=== PATIENT | female | born 1950 | race Caucasian/White ===

== ENCOUNTER 2021-08-15 19:27 | Emergency (ER) | payer MEDICARE, SELFPAY ==
[2021-08-15 19:28] VITALS: BP 177/129; PULSE 92; RESP 18; TEMP 36.7; O2SAT 98; BMI 26.6
--- NOTE | 2021-08-15 19:32 | EKG12_ITS ---
Test Reason : CP Blood Pressure : / mmHG Vent. Rate : 086 BPM Atrial Rate : 086 BPM P-R Int : 150 ms QRS Dur : 084 ms QT Int : 394 ms P-R-T Axes : 023 -23 019 degrees QTc Int : 471 ms Normal sinus rhythm Normal ECG Confirmed by ADA SILVER, RIGO ([id number]), video tape editor GIL ELY ([id number]) on 08/18/2021 9:22:10 AM Referred By: ZAC Confirmed By:RIGO CABALLERO MD
--- NOTE | 2021-08-15 19:47 | RAD_ITS ---
STUDY: XR Chest 1 View 08/15/2021 7:57 PM REASON FOR EXAM: Female, 71 years old. CHEST PAIN CHEST PAIN COMPARISON: None TECHNIQUE: XR Chest 1 View FINDINGS: There is no demonstrated pleural abnormality. Normal heart size. Normal mediastinum. Normal dani. Prominent appearing increased interstitial lung markings. Normal visualized pulmonary arteries. There is atherosclerotic calcification of the aortic arch with tortuosity. There are diffuse degenerative changes of the visualized thoracic spine. There is degenerative osteoarthritis of the bilateral shoulders. There is no demonstrated abnormality of the visualized soft tissue structures of the upper abdomen. RAD/Chest 1 View (Portable) IMPRESSION: There are no acute findings. Electronically Signed: Darrell Mondragon MD at 20:18 EST , Service support ,
[2021-08-15 19:48] LABS: Absolute Lymphocyte Count 1.97 X10^3/uL (0.83-4.51); Absolute Neutrophil Count 2.7 X10^3/uL (2.0-7.7); Basophil# 0.07 X10^3/uL; Basophil% 1.3 % (0-1); Eosinophils% 3.6 % (0-5); Hematocrit 43.7 % (37-47); Hemoglobin 14.3 g/dL (12.0-15.0); Lymphocyte # 1.97 X10^3/ul (0.83-4.51); Lymphocyte % 35.6 % (19-41); Mean Corp Hgb Conc 32.7 g/dL (32-36); Mean Corpuscular Hgb 29.4 pg (27.0-32.0); Mean Corpuscular Volume 89.7 fL (81-99); Mean Platelet Vol. 9.5 fl (6.2-12.0); Monocyte% 10.8 % (0-10); NRBC Flagged by Analyzer 0 % (0-5); Neutrophil # 2.67 X10^3/uL (2.7-7.7); Neutrophil % 48.3 % (47-70); Platelet Count 264 K/mm3 (150-450); RBC Distribution Width CV 13.8 % (11.6-14.6); RBC Distribution Width SD 44.9 fl (35.1-43.9); Red Blood Count 4.87 M/mm3 (4.2-5.4); White Blood Count 5.5 K/mm3 (4.4-11.0)
[2021-08-15 20:09] LABS: Anion Gap 6 (5-15); BUN 11 mg/dL (7-18); BUN/Creat Ratio 13.4 RATIO (10-20); Calcium,Total 9.9 mg/dL (8.5-10.1); Chloride 109 mmol/L (98-107); Creatinine, Serum 0.82 mg/dL (0.55-1.02); EST Glomerular Filtration Rate 72 mL/min (>60); Est Glom Filt Rate - Afr Amer 88 mL/min (>60); Estimated Creatinine Clearance 54.98 ml/min; Glucose 105 mg/dL (74-106); Potassium 3.9 mmol/L (3.5-5.1); Sodium Level 140 mmol/L (136-145); Troponin-I HS 6 pg/mL (3.0-54.0)
[2021-08-15 21:04] VITALS: PULSE 85; RESP 21
--- NOTE | 2021-08-15 21:13 | ED.VIS.CHEST ---
HPI History of Present Illness Chief Complaint: Chest Pain Informant: patient Onset/Context/Timing Onset: Days Activity at onset: gradual Timing: Intermittent Quality: Positive for Burning and Tightness Location: Substernal Current Severity: Mild Maximum Severity: Moderate Narrative Narrative: Patient presents secondary to nightly chest pain with nausea and dizziness. Patient states for the last 2 nights she has developed chest pressure and tightness that she thought was related to reflux. She tried drinking water with baking soda and making herself vomit. This would relieve the symptoms for only short time and then they would recur. She called her doctor's office today to ask if she could restart her Nexium which she been on previously. They advised her that she could restart this, but did encourage her to be checked out if symptoms recur. Pain started again this evening so she came in for evaluation. [facility] Medical History Acid reflux Hyperlipidemia Home Medications omeprazole 20 mg PO DAILY 28 Days #28 cap 08/15/21 [Rx Last Taken Unknown] Allergy/AdvReac Type Severity Reaction Status Date / Time bee venom protein (honey bee) Allergy Swelling Verified 08/15/21 19:31 Surgical History History of cholecystectomy History of tonsillectomy Social History Smoking Status: Never smoker ROS ROS ED Constitutional Constitutional ED: Denies chills or fever(s) Eyes Eyes: Denies change in vision ENT ENT ED: Denies sore throat Cardiovascular Cardiovascular: Reports chest pain Respiratory/Chest Respiratory/Chest: Denies cough or dyspnea Gastrointestinal Gastrointestinal: Reports nausea and vomiting; Denies abdominal pain or diarrhea Genitourinary Genitourinary ED: Denies dysuria Musculoskeletal Musculoskeletal: Denies back pain or neck pain Integumentary Denies rash Neurologic Neurologic: Denies headache(s) or weakness Allergic/Immunologic Allergic/Immunologic ED: Denies urticaria EXAM Physical Exam Const Vital Signs: 08/15/21 19:28 08/15/21 21:04 08/15/21 21:09 Temperature 98.0 F Temperature Source Temporal Pulse Rate 92 85 Respiratory Rate 18 21 H Respiratory Pattern Normal Blood Pressure 177/129 H Blood Pressure Mean 145 Pulse Ox 98 Oxygen Delivery Method Room Air Room Air 08/15/21 22:00 Temperature Temperature Source Pulse Rate 76 Respiratory Rate 14 Respiratory Pattern Blood Pressure 133/96 H Blood Pressure Mean 108 Pulse Ox Oxygen Delivery Method Room Air Positive well nourished and well developed General Appearance ED: well developed HEENT Reports moist mucous membranes Eyes PERRL and EOMs intact bilaterally Neck supple Chest Wall inspection of chest normal and palpation of chest normal Resp normal respiratory effort Effort and Inspection: respiratory distress Cardio regular rate and regular rhythm Extremity normal to inspection Neuro Sensorium / Orientation: awake and alert Psych mental status grossly normal Skin no rashes or lesions noted Heart Score History: Slightly/Non-Suspicious ECG: Normal Age: >/= 65 years Risk Factors: No Risk Factors Troponin: </= Normal Limit Score: 2 MDM MDM MDM Narrative Medical decision making narrative: EKG, chest x-ray, lab work obtained. Patient given a GI cocktail. Lab Data Attestation: I reviewed the patient's lab results. Labs: Laboratory Results - last 24 hr 08/15/21 08/15/21 08/15/21 19:42 19:42 21:36 WBC 5.5 RBC 4.87 Hgb 14.3 Hct 43.7 MCV 89.7 MCH 29.4 MCHC 32.7 RDW Std Deviation 44.9 H RDW Coeff of [place]alia 13.8 Plt Count 264 MPV 9.5 Immature Gran % (Auto) 0.400 Neut % (Auto) 48.3 Lymph % (Auto) 35.6 [place] % (Auto) 10.8 H Eos % (Auto) 3.6 Baso % (Auto) 1.3 H Absolute Neuts (auto) 2.7 Absolute Lymphs (auto) 1.97 Nucleated RBC % 0 Sodium 140 Potassium 3.9 Chloride 109 H Carbon Dioxide 25.0 Anion Gap 6 BUN 11 Creatinine 0.82 Estim Creat Clear Calc 54.98 Est GFR (MDRD) Af Amer 88 Est GFR (MDRD) Non-Af 72 BUN/Creatinine Ratio 13.4 Glucose 105 Calcium 9.9 Troponin I High Sens 6 7 Radiography Chest X-Ray - ED: 1 View, Read by ED Physician and Chronic Changes Diagnostic Testing: Clinical Impression(s) from Imaging Studies Chest X-Ray 08/15/21 19:47 IMPRESSION: There are no acute findings. Electronically Signed: Darrell Mondragon MD at 20:18 EST , Service support , EKG Initial EKG: Attestation: I personally reviewed and interpreted this EKG as follows: Interpretation: Sinus Rhythm (Sinus 86 with no acute ischemia.) Treatment and Re-Evaluation Comments:: Delta troponin was obtained and remains normal. Lab work unremarkable. Chest x-ray clear. Patient does note improvement after GI cocktail. I did discuss with her that I do believe her symptoms are secondary to reflux. She will be given a prescription for Prilosec. She is to keep track of her blood pressures at home and follow-up with her doctor later this week. Discharge Plan Triage Chief Complaint: Chest Pain ED Provider: Emely James Dx/Rx/DC Orders Clinical Impression: Atypical chest pain Instructions: ED Chest Pain, Noncardiac Prescriptions: New omeprazole 20 mg capsule,delayed release(DR/EC) 20 mg PO DAILY 28 Days Qty: 28 RF: 0 Primary Care Provider: Isabel Conteh Referrals: Isabel Conteh PA [Primary Care Provider] - 3-5 Days Disposition Disposition: Home, Self Care
[2021-08-15] MEDS: Mag Hydrox/Al Hydrox/Simeth 30 ML UDC PO (21:29)
[2021-08-15 22:00] VITALS: BP 133/96; PULSE 76; RESP 14
[2021-08-15 22:19] LABS: Troponin-I HS 7 pg/mL (3.0-54.0)
== END 2021-08-15 23:08 | disposition home or self-care (01) ==
PROVIDERS: Emergency Provider Emergency Medicine; PCP Physician Assistant
DX: R07.89 Other chest pain (principal); E78.5 Hyperlipidemia, unspecified; K21.9 Gastro-esophageal reflux disease without esophagitis
CPT/HCPCS: 71045; 80048; 84484; 85025; 93005; 99283; A4216